=== PATIENT | male | born 1950 | race Caucasian/White ===

== ENCOUNTER 2025-02-08 06:31 | Observation (INO) ==
--- NOTE | 2024-12-29 11:48 | PAT Medication Instructions ---
Medication Instructions Date of Service December 29, 2024 Home Medications cholecalciferol (vitamin D3) 50 mcg (2,000 unit) capsule 50 mcg PO QAM garlic 300 mg capsule 300 mg PO QAM multivitamin 1 tab PO QAM rosuvastatin 10 mg tablet 10 mg PO QPM acetaminophen 500 mg tablet (Acetaminophen Extra Strength) 500 mg PO Q6H PRN Pain docusate sodium 100 mg capsule 100 mg PO HS metoprolol succinate 25 mg capsule sprinkle, ext. release 24 hr 12.5 mg PO QAM aspirin 81 mg tablet,delayed release 81 mg PO QAM ASK your prescriber and surgeon aspirin 81 mg tablet,delayed release 81 mg PO QAM STOP taking 2 weeks before surgery (or as soon as possible if surgery is within 2 weeks) garlic 300 mg capsule 300 mg PO QAM DO NOT take the morning of surgery cholecalciferol (vitamin D3) 50 mcg (2,000 unit) capsule 50 mcg PO QAM multivitamin 1 tab PO QAM Take morning of surgery With a small sip of water, OTHERWISE NOTHING TO EAT OR DRINK AFTER MIDNIGHT: acetaminophen 500 mg tablet (Acetaminophen Extra Strength) 500 mg PO Q6H PRN Pain (if needed) metoprolol succinate 25 mg capsule sprinkle, ext. release 24 hr 12.5 mg PO QAM Take evening before surgery rosuvastatin 10 mg tablet 10 mg PO QPM acetaminophen 500 mg tablet (Acetaminophen Extra Strength) 500 mg PO Q6H PRN Pain (if needed) docusate sodium 100 mg capsule 100 mg PO HS Other Notes If you have any questions please call us at [phone] or [phone] or [phone] or [phone]
--- NOTE | 2025-01-02 10:55 | Anesthesiology Consultation ---
Date of Service January 02, 2025 Assessment & Plan (1) Encounter for pre-operative examination: - awaiting surgeon ordered cardiology clearance, 01/16/25 Dr. Fountain. - Outpatient joint assessment: Patient is currently scheduled for inpatient pathway. If re-evaluated and patient/surgeon requests outpatient pathway, patient is not ideal candidate for outpatient joint program. Chart Review Chart Review: Pending: Refer to Additional Notes / Consult section and Patient seen in Pre Admission Testing Teaching & Discussion Pre-Anesthesia Teaching/Discussion Notes: Instructed NPO after midnight before surgery, except medications with 15 cc of water. Medication instructions provided according to the PAT guidelines. History Surgery Operation Date: 02/08/25 07:00 Proposed Procedures p Left Total Shoulder Arthroplasty - Ivan Rose MD Height/Weight Height: 5 ft 11 in Weight: 113.4 kg Allergies Allergy/AdvReac Type Severity Reaction Status Date / Time house dust Allergy Intermediate Sneezing Verified 12/19/24 11:52 Sulfa (Sulfonamide Allergy Intermediate Rash Verified 12/19/24 11:52 Antibiotics) Penicillins Allergy Unknown Unknown Verified 12/19/24 11:52 Medications Home Medications Medication Instructions Recorded Confirmed Last Taken cholecalciferol (vitamin D3) 50 50 mcg PO QAM 07/21/24 12/19/24 Unknown mcg (2,000 unit) capsule garlic 300 mg capsule 300 mg PO QAM 07/21/24 12/19/24 Unknown multivitamin 1 tab PO QAM 07/21/24 12/19/24 Unknown rosuvastatin 10 mg tablet 10 mg PO QPM 07/21/24 12/19/24 Unknown acetaminophen 500 mg tablet 500 mg PO Q6H PRN Pain 07/28/24 12/19/24 Unknown (Acetaminophen Extra Strength) docusate sodium 100 mg capsule 100 mg PO HS 07/28/24 12/19/24 Unknown metoprolol succinate 25 mg capsule 12.5 mg PO QAM 07/28/24 12/19/24 Unknown sprinkle, ext. release 24 hr aspirin 81 mg tablet,delayed 81 mg PO QAM 12/19/24 12/19/24 Unknown release Past Medical History Medical History (Updated 01/02/25 @ 15:39 by Kenya Lockwood PA-C) Adverse effect of anesthesia during nasal surgery and right knee replacement - woke up in the middle of procedure - as per patient CAD (coronary artery disease) no stents - [facility] Cardiology - Dr Fountain Diverticular disease Emphysema of lung pt unsure History of myocardial infarction of septum Incidental finding for PVC's - [facility] Cardiology - Dr Fountain History of retinal tear Right "Self-healing" as per patient Hx of retinal detachment Left Hx of rheumatic fever as a child Hypertension controlled, stable per pt Ocular migraine hx - 8x lifetime Prediabetes pt denies PVC's (premature ventricular contractions) [facility] Cardiology - Dr Fountain RBBB (right bundle branch block) [facility] Cardiology - Dr Fountain Sleep apnea CPAP-compliant Thyroid nodule Monitoring Tick bite (~1990) hx - unsure if ever have lyme or tested positive - complete antibiotic tx Patient denies h/o stroke, seizures, heart failure, blood clots/DVTs or blood transfusions. Exercise / Class Metabolic Activity II 4-5 Yardwork/Stairs/Walk up hill (denies chest discomfort or shortness of breath with one flight of stairs) Past Family History Family History Mother Glioblastoma Father Prostate carcinoma Brother Prostate carcinoma Past Surgical History Surgical History History of arthroplasty of right knee History of colon resection d/t diverticulitis 12/2019 History of nasal surgery for deviated septum Hx of arthroscopy of left knee Hx of bilateral cataract extraction Hx of colonoscopy Hx of detached retina repair Left Hx of thumb surgery as a child - Left - nail removed (never grew back) as per patient Hx of vasectomy S/P scrotal varicocelectomy Past Anesthesia History No Family Hx of Anesthesia Complications History of PONV No Hx of PONV and No Hx of Motion Sickness Social History Smoking Status: Former smoker Do You Dip or Chew Tobacco: No Smoking End Date: 2008 Hx Alcohol Use: No Hx Substance Use: No substance use type: does not use Review of Systems Patient denies chest pain, shortness of breath, dyspnea on exertion, reflux, fever, chills, cough, wheezing, or palpitations. Physical Exam Vital Signs Vitals BP 136/84 P 91 TEMP 98.6 SP02 96% on RA RESP 18 Physical Patient resting comfortably in chair in no acute distress, alert and oriented, responding appropriately throughout visit Full cervical extension range of motion without pain TMD 3.5 finger breadths Mallampati Score 2 Dentition: several crowns, denies chipped or loose teeth, implants or bridges Lungs: normal respiratory effort. Good air movement, clear throughout to auscultation, no adventitious breath sounds Cardiac: regular rate and rhythm, no murmurs noted Carotid arteries: negative bruit bilat Lab Results Anesthesia Preop Results Results Anesthesia Widget: WBC 7.53 K/ul (4.8-10.8) 01/02/25 Hgb 15.9 g/dl (14.0-18.0) 01/02/25 Hct 48.6 % (42.0-52.0) 01/02/25 Plt 226 K/uL (130-400) 01/02/25 Na 140 mmol/L (136-145) 01/02/25 K 4.4 mmol/L (3.5-5.1) 01/02/25 Cl 105 mmol/L (98-107) 01/02/25 CO2 27 mmol/L (21-32) 01/02/25 BUN 13 mg/dl (6-23) 01/02/25 Creat 0.90 mg/dl (0.6-1.4) 01/02/25 Glucose Level 82 mg/dl (70-99(Fasting)) 01/02/25 PT 11.2 Seconds (9.0-12.0) 01/02/25 PTT 30 Seconds (21-31) 01/02/25 INR 1.0 (0.9-1.1) 01/02/25 TSH 1.423 uIu/ml (0.300-4.500) 01/02/25 HA1c 5.8 % (4.5-5.6) H 01/02/25 Urine Color Yellow 01/02/25 Urine Appearance Clear (Clear) 01/02/25 Urine pH 5.5 (4.5-7.5) 01/02/25 Urine Specific [place] 1.007 (1.000-1.030) 01/02/25 Urine Protein Negative (Negative) 01/02/25 Urine Glucose (UA) Negative (Negative) 01/02/25 Urine Ketones 1+ (Negative) H 01/02/25 Urine Blood 1+ (Negative) H 01/02/25 Urine Nitrite Negative (Negative) 01/02/25 Urine Bilirubin Negative (Negative) 01/02/25 Urine Urobilinogen Negative (Negative) 01/02/25 Urine Leukocyte Esterase 2+ (Negative) H 01/02/25 Urine WBC (Auto) 6-10 /hpf (0-5) H 01/02/25 Urine RBC (Auto) 0-2 /hpf (0-2) 01/02/25 Urine Hyaline Casts (Auto) 0-2 /lpf (0-2) 01/02/25 Urine Epithelial Cells (Auto) 0-2 /hpf (0-2) 01/02/25 Urine Bacteria (Auto) None Seen (None Seen) 01/02/25 Blood Type B Positive 01/02/25 Antibody Screen NEGATIVE 01/02/25 Testing Electrocardiogram Date: 04/15/24 Sinus rhythm with frequent PVCs, rate 90 bpm Possible LA enlargement Left axis deviation RBBB Septal infarct, age undetermined Chest X-Ray Date: 01/02/25 1. Mildly hyperinflated chest noted. 2. No acute cardiopulmonary abnormalities identified. 3. No interval changes compared to prior study. Echocardiogram Date: 05/19/24 EF 55-60% No LVH No regional wall motion abnormalities Grade I diastolic dysfunction Mildly calcified, tricuspid aortic valve without stenosis Trace to mild aortic insufficiency Mild mitral valve regurgitation Other Testing Low dose lung CT 06/03/24 1. Emphysema. 2. No suspicious pulmonary lesion is identified. 3. There is no airspace consolidation or pleural effusion. 4. Advanced coronary artery atherosclerosis. 5. Additional findings as above.
--- NOTE | 2025-02-08 05:26 | History & Physical Bridge Note ---
Date of Service February 08, 2025 History & Physical Bridge Note I have examined the patient, reviewed the History & Physical and in the interval since the performance of the History & Physical I have noted the following changes of clinical significance: consent and site verified.no changes noted
[2025-02-08] MEDS ORDERED: BUPIVACAINE 0.5 % 5 MG/1 ML PF 10ML VIAL ONE (07:48)
[2025-02-08] MEDS ORDERED: MIDAZOLAM HCL 1 MG/ML 2ML VIAL ONE (08:22)
[2025-02-08] MEDS ORDERED: LIDOCAINE 2% 2 ML VIAL/AMP(20MG/ML) INFIL ONE (08:23)
[2025-02-08] MEDS ORDERED: ONDANSETRON INJ 2 MG/ML 2 ML VIAL ONE (08:23)
[2025-02-08] MEDS ORDERED: fentaNYL citrate PF 100 MCG/2 ML VIAL ONE (08:23)
[2025-02-08] MEDS ORDERED: PROPOFOL IV EMULSION 10 MG/ML 20 ML VIAL IV ONE (08:23)
[2025-02-08] MEDS ORDERED: ePHEDrine sulfate 50 MG/ML AMP IV PRN (08:45)
[2025-02-08] MEDS ORDERED: fentaNYL citrate PF 100 MCG/2 ML VIAL IV PRN (08:45)
[2025-02-08] MEDS ORDERED: ATROPINE SULFATE 0.1 MG/ML 10ML SYR IV PRN (08:45)
[2025-02-08] MEDS ORDERED: ONDANSETRON INJ 2 MG/ML 2 ML VIAL IV PRN ×2 (08:45→13:58)
[2025-02-08] MEDS: TRANEXAMIC ACID 1,000 MG **IV Pre-op IV SCH (08:47)
[2025-02-08] MEDS: LR 15ML/HR IV SCH (09:06)
[2025-02-08] MEDS: ceFAZolin 2000MG 2,000 MG/15 ML SYR IV SCH ×2 (09:09→16:58)
[2025-02-08] MEDS: LR 60ML/HR IV SCH (09:20)
[2025-02-08] MEDS ORDERED: PHENYLEPHRINE 100MCG/ML 5ML SYR ONE (10:36)
[2025-02-08] MEDS ORDERED: ePHEDrine sulfate 50 MG/5 ML SYR ONE (10:36)
[2025-02-08] MEDS: TRANEXAMIC ACID 1,000 MG **IV Intra-op IV SCH (11:18)
[2025-02-08] MEDS: THROMBIN FOR SOLN 20000 UNIT KIT ONE (11:20)
--- NOTE | 2025-02-08 11:31 | Post Operative Brief Note ---
Immediate Post Op Note Date of Surgery February 08, 2025 Pre & Post Diagnosis Operation Date: 02/08/25 08:50 Pre-Op Diagnosis: Left Shoulder Osteoarthritis Post-Op Diagnosis: Left Shoulder Osteoarthritis I identified the patient and participated in the time-out.: Yes Procedure Operation Date: 02/08/25 08:50 Actual Procedures p Left Total Shoulder Arthroplasty(Left) - Ivan Rose MD Surgeon Ivan Rose MD Kelp Cutter Elham/Ebonie Estimated Blood Loss 75 Findings Consistent with Post-Op Diagnosis Severe osteoarthritis of the left shoulder with multiple loose bodies Fluids 1000 cc Complications None
--- NOTE | 2025-02-08 11:37 | Operative Report ---
Post Operative Report Pre & Post Diagnosis Operation Date: 02/08/25 08:50 Pre-Op Diagnosis: Left Shoulder Osteoarthritis Post-Op Diagnosis: Left Shoulder Osteoarthritis I identified the patient and participated in the time-out.: Yes Procedure Operation Date: 02/08/25 08:50 Actual Procedures p Left Total Shoulder Arthroplasty(Left) - Ivan Rose MD Surgeon Ivan Rose MD Public Health Officer Elham/Ebonie Estimated Blood Loss 75 Findings Consistent with Post-Op Diagnosis Severe osteoarthritis with multiple loose bodies Fluids 1000 cc Specimens Bone pathology Drains None Complications None Indications Severe pain failed conservative management Description of Procedure After the patient was appropriate notified site verified consent verified antibiotics were confirmed to be given he was carefully placed in the beachchair position shoulder exam revealing forward flexion 110 degrees abduction the same rotation belly to 10 degrees. Once prepped and draped deltopectoral exposure was utilized. Sharp section carried to the skin blunt dissection down to the fascia the deltopectoral interval was then opened. Retractors placed. The vein was preserved. Clavipectoral fascia was then opened and number deep retractors placed. Rotator interval was identified and the subscapularis peeled off the bone. #1 Vicryl was placed in the supraspinatus. The capsule was then released all around the humeral neck going over the osteophytes 2 loose bodies were removed osteophytes resected and the humeral head resected and revised slightly once. Once that was done the next exposure was obtained of the glenoid. The remaining subscap was released off the anterior neck of the glenoid the labrum excised. Using the [employer] global shoulder system a 48 glenoid was appropriately drilled and then impacted in position as a trial it fit well. The permanent was then cemented into position after wound was irrigated with Pulsavac Betadine. After 12 minutes the area was inspected no cement movable was required. Minimal osteophytes were removed off the posterior glenoid before inserting the true implant. The humerus was then flexed and extended and noted to fit through the wound well. It was then appropriately placed into extension adduction and external rotation and allowed proximal humerus to be reamed appropriately at 14 stem fit well. Trial reduction was carried with a 135 body 48 x 18 eccentric head excellent stability was obtained. Once trial was removed the wound was irrigated and then the sutures 4 sutures of #1 FiberWire were then placed through all 4 drill holes once this was done the the humerus was positioned around these and then they were tightened and the humerus stem impacted into position the stem went all the way down so we went directly to the 48 x 18 eccentric head with excellent fixation. Humerus was then reduced verified that it would subluxate 50% posteriorly at first it was little bit incarcerated and soft tissue once we get that cleared out everything moves well. The wound was irrigated 1 final time rotatable closed with #1 Vicryl to the subscapularis and reinforced with the same stitch. The sutures through the bone were then tied through the subscapularis and repaired at nicely down to the tuberosity. With one of the last sutures the eyelet of the needle broke was identified found and removed but was dropped out of the patient somewhere out of the field we could not find it so just to be 100% safe we obtain multiple plain image in the operating room with the fluoroscope and the needle clearly was not in the patient. Wound was then continuously irrigated and then closed with #2 Vicryl and stainless to clips for skin appropriate d ressing applied the patient transferred recovery in satisfactory addition he tolerated the procedure well. Summary of implants size 48 glenoid size 14 stem size 14 x 135 body 48 x 18 eccentric head Global unite total shoulder system by [email or web address]. I attest to the content of the Intraoperative Record and any orders documented therein. Any exceptions are noted below.
--- NOTE | 2025-02-08 11:40 | Discharge Summary ---
Date of Service February 09, 2025 Admission HPI Per Admitting Provider Osteoarthritis left shoulder Principal Diagnosis Hybrid total shoulder replacement left Discharge Data Allergies Allergy/AdvReac Type Severity Reaction Status Date / Time house dust Allergy Intermediate Sneezing Verified 02/08/25 06:52 Sulfa (Sulfonamide Allergy Intermediate Rash Verified 02/08/25 06:52 Antibiotics) Vaccinations None Consultations None Procedures Performed Operation Date: 02/08/25 08:50 Actual Procedures p Left Total Shoulder Arthroplasty(Left) - Ivan Rose MD Ordered Studies 02/08/25 FL shoulder LT min 2V Routine 02/08/25 05:00 US - OR guided needle placemen Routine Hospital Course (1) Status post total replacement of left shoulder: Care plan for total shoulder Total Time Total Time Spent Total Time Spent (In Minutes): 5 minutes Discharge Plan Discharge Items Patient Disposition: Home - Self-Care Reason For Visit: Left Shoulder Osteoarthritis Discharge Diagnosis: Status post left total shoulder placement hybrid Condition on Discharge: Good Activity: Per Instructions section Lifting: Wait until after follow-up appointment Bathing: Keep incision dry Sexual Activity: Wait until after follow-up appointment Exercise/Sports: Wait until after follow-up appointment Driving/Machine Use: No driving until cleared by Dr. Rose Non-emergency contact: Surgeon Call non-emergency contact if: you have any medication questions, your pain is not controlled, your temperature is above 101, your wound has increased redness, your wound has increased drainage and your wound pain has increased Follow-up/Referrals: Laura Rothman, DO [Primary Care Provider] - Diet: Heart Healthy [facility] Attending Provider Instructions: DIET: * Resume previous diet. MEDICATIONS: * Please take your prescriptions as instructed at your pre-op appointment and/or see medication discharge instructions listed above. * If concerns develop, call your physician's office at . SPECIAL CARE INSTRUCTIONS: * Ice/Elevate as instructed. * Keep dressing clean, dry, intact. * Your surgical extremity may be discolored due to prepping agents used on the skin. A bluish-green tint is a normal variant and should not cause alarm. Call your doctor at [phone] if: * Temperature above 101 degrees * Pain not relieved by pain medicine ordered * There is increased drainage or redness from any incision * You have any unanswered questions, problems or concerns. FOLLOW UP VISIT: * If not already scheduled, please call the office at to schedule a follow-up appointment. The following are instructions to follow after "Shoulder Surgery" including, Acromioplasty, Rotator Cuff Repair and Instability Surgery ACTIVITY RECOMMENDATIONS: * Minimize activity after surgery. * No excessive walking, jogging, sports or laboring. * Return to activity is individualized depending on the patient and type of surgery. * Driving is not permitted until at least your first post operative visit. Pl ease ask your doctor when it is safe to resume driving. * Expect increased discomfort with increased activity. Continue to ice the shoulder as needed. SCHOOL/WORK RECOMMENDATIONS: * You may return to sedentary work or school when you are feeling more comfortable. This is usually 3-7 days after surgery. MEDICATIONS: * You will have a prescription for pain medication after surgery. * Use the pain medication for severe pain and an anti-inflammatory for less severe pain. Once the pain medication has run out, try to use the anti-inflammatory medication. If this is not effective, contact the office for assistance. * The pain medication may cause nausea, constipation and drowsiness. You shoul d see how they affect you before driving or similar activity. * The anti-inflammatory medication may cause stomach upset and bleeding. If this occurs let your doctor know immediately . * Take a stool softener like Colace or a laxative like Senokot to prevent constipation. DIET: * Resume previous diet. SPECIAL CARE: ICE: You have the option of gel packs or ice bags. Do not apply ice directly to the skin. Use a thin dressing or joanie shirt between the skin and ice bag. Apply ice for 20-30 minutes and repeat every 2-4 hours. This is especially important for the first 7-10 days after surgery. Once the pain improves, use ice as needed. ELEVATION: * You may be more comfortable sleeping in an upright position. Use the sling to elevate your arm. DRESSING: * Your dressing will be changed at your first therapy appointment 1 day after surgery. Band-aids, tape strips or gauze may be applied. You may then change your dressing daily. * Reapply dressing followed by the sling. * Always wash your hands prior to touching the incision area. * Once the stitches are removed, you may leave the wound open to air or cover with gauze. * Expect some bloody drainage for the first few days after surgery. * Leave the tape strips, if present, in place for 5-7 days. * Band-aids and gauze may be changed daily. * There may be a gauze pad in your armpit area. This can be changed daily or replaced by a dry washcloth. SLING/BRACE: * You will need to use a sling or brace after surgery. The length of time the sling is used is dependent upon the type of surgery performed. * Arthroscopic Acromioplasty requires use of the sling for 2-4 weeks for comfort. * Labral procedures and Rotator Cuff Repairs require use of the sling for a longer period of time. Please check with your doctor prior to discontinuing the sling. BATHING: * You may shower or sponge-bathe immediately after surgery. The post operative shoulder dressing is mostly water-tight. You may shower right over this dressing, but be reasonably careful not to get the gauze or incision wet. * Wash with regular soap and water. * Do not bathe (submerge the incision), soak, swim or use a hot tub until the incision is completely healed over with normal skin and the doctor has given the OK to proceed. * There is no need to apply any ointments, powders or salves to your incision. * Do not apply alcohol or hydrogen peroxide directly to the incision. * Diluted peroxide (50:50 mixture with sterile saline) may be used to clean dried blood from around the incision area. THERAPY: * You will begin therapy 1 day after surgery. * Organized therapy with the therapist is important for the first 2-4 months after surgery depending on the type of procedure. During that time you will attend therapy 1-3 times per week. * You will also need to do daily exercises for range of motion and strength as instructed. * Patients who have a Capsular Shift Procedure will need to abide by temporary range of motion limitations. * Patients having Rotator Cuff Surgery are not allowed to actively lift their arms until 4-6 weeks after surgery. * Please check with your doctor regarding appropriate motion restrictions. FOLLOW UP VISIT: * If not already scheduled, please call the office at to schedule a follow-up appointment for 10 days after surgery and monthly thereafter. Stand-Alone Forms: [employer], Smoking Cessation Medications and DC Order Prescriptions: No Action garlic 300 mg capsule 300 mg PO QAM cholecalciferol (vitamin D3) 50 mcg (2,000 unit) capsule 50 mcg PO QAM multivitamin Tablet 1 tab PO QAM docusate sodium 100 mg capsule 100 mg PO HS metoprolol succinate 25 mg capsule,sprinkle,ER 24hr 12.5 mg PO QAM acetaminophen [Acetaminophen Extra Strength] 500 mg tablet 500 mg PO Q6H PRN (Reason: Pain) rosuvastatin [Crestor] 10 mg tablet 5 mg PO QPM aspirin 81 mg tablet,delayed release (DR/EC) 81 mg PO QAM Admission Data Admit Date/Time: 02/08/25 12:01 Attending Provider: Ivan Rose Admit Provider: Ivan Rose Primary Care Provider: Laura Rothman
--- NOTE | 2025-02-08 11:41 | Orthopedic Progress Note ---
Date of Service February 08, 2025 Orthopedic Progress Note Underwent left total shoulder replacement no major issues. Wound dressing clean dry and intact. Fluoroscopic views in the procedure were utilized to ensure that there was not a retained foreign body. This looked good. At this point in time obtained from the hardcopies in the recovery room. Continue care plan for total shoulder replacement family contacted.
--- NOTE | 2025-02-08 11:55 | Operative Report ---
Post Operative Report Pre & Post Diagnosis Operation Date: 02/08/25 08:50 Pre-Op Diagnosis: Left Shoulder Osteoarthritis Post-Op Diagnosis: Left Shoulder Osteoarthritis I identified the patient and participated in the time-out.: Yes Procedure Operation Date: 02/08/25 08:50 Actual Procedures p Left Total Shoulder Arthroplasty(Left) - Ivan Rose MD Surgeon MAGGI Rose MD Soft Metals Engraver Hand Elham/Ebonie STEELE Estimated Blood Loss 75 Findings Consistent with Post-Op Diagnosis see operative report Specimens see operative report Drains none Complications None Disposition Accompanied Patient To Recovery: Yes Indications This 75 year old male presented to the office with complaints of persisting left shoulder pain. He had tried conservative care measures without improvement. He elected to proceed with surgical intervention after being educated about potential risks and outcomes. Preoperative imaging was obtained. Description of Procedure The patient was administered a regional block and then taken to the operating room where he was given general anesthesia. He was prepped and draped in the usual sterile fashion. Please see Dr. Rose's operative report for specifics of the procedure. I was present for the entire case from initial patient positioning through final wound closure. Assistance was provided in tissue retraction, hemostasis, trial implant placement, final implant placement, and final wound closure. The patient was taken to the recovery room in satisfactory condition. I attest to the content of the Intraoperative Record and any orders documented therein. Any exceptions are noted below.
--- NOTE | 2025-02-08 11:55 | Operative Report ---
Post Operative Report Pre & Post Diagnosis Operation Date: 02/08/25 08:50 Pre-Op Diagnosis: Left Shoulder Osteoarthritis Post-Op Diagnosis: Left Shoulder Osteoarthritis I identified the patient and participated in the time-out.: Yes Procedure Operation Date: 02/08/25 08:50 Actual Procedures p Left Total Shoulder Arthroplasty(Left) - Ivan Rose MD Surgeon Ivan Rose MD [employer] [place]/E[place]ie Estimated Blood Loss 75 Findings Consistent with Post-Op Diagnosis Specimens Left humeral head bone pathology Description of Procedure Patient was brought to the operative suite where he underwent anesthesia. Left upper extremity was prepped and draped in the usual sterile fashion. Surgical timeout was performed. The patient underwent a left total shoulder arthroplasty. Please see Dr. Rose's operative report for full details. I was present and assisted with patient positioning, limb positioning, surgical approach, soft tissue retraction and hemostasis, hardware implantation, wound closure, postoperative dressing placement. The patient was awakened and taken to the recovery room in stable condition. I attest to the content of the Intraoperative Record and any orders documented therein. Any exceptions are noted below.
--- NOTE | 2025-02-08 12:02 | Fluoroscopy Report ---
FL shoulder LT min 2V CLINICAL HISTORY: LEFT SHOULDER MISSING NEEDLE COMPARISON STUDY: 01/13/2025 FLUOROSCOPY TIME: 6 seconds FLUOROSCOPY IMAGES: 3 EXPOSURE DOSE: 0.5 mGy FINDINGS: Fluoroscopy was provided for left shoulder prosthesis. Otherwise no radiopaque foreign body seen on the submitted images. IMPRESSION: Intraoperative fluoroscopy. ACT 112: Negative or not required by law. Electronically signed by: Willian Shannon M.D. 02/08/2025 12:01 PM
--- NOTE | 2025-02-08 12:07 | XRay Report ---
XR shoulder LT min 2V routine CLINICAL HISTORY: S/P L TSA COMPARISON: None pertinent FINDINGS: 2 views of the left shoulder demonstrate a proximal humeral prosthesis has been inserted w ith satisfactory positioning and alignment. Postsurgical changes are identified in soft tissues. Ther e is discoid atelectasis present in the left lung base. IMPRESSION: Satisfactory postop appearance status post arthroplasty. Discoid atelectasis is noted at the left lung base. ACT 112: Negative or not required by law. Electronically signed by: Mari Wong M.D. 02/08/2025 12:06 PM
--- NOTE | 2025-02-08 12:19 | Orthopedic Progress Note ---
Date of Service February 08, 2025 Orthopedic Progress Note Doing well at this point in time denies chest pain shortness of breath fever chills nausea vomiting headache. Vital signs are stable afebrile. Neurovascular check reveals intact finger extension flexion wrist flexion extension decreased sensation about the shoulder consistent with his block. He has decreased sensation in the hand as well consistent with his block. Postop x-rays look excellent. No sign of any issues. Assessment doing well status post total shoulder replacement hybrid cemented glenoid press-fit humerus. Continue care pathway discharge home tomorrow.
--- NOTE | 2025-02-08 13:52 | Anesthesiology Progress Note ---
Date of Service February 08, 2025 Anesthesia Post Procedure Vital Signs Vital Signs: Temp Pulse Pulse Resp BP Pulse Ox O2 Del Method 02/08/25 13:30 36.4 C L 88 16 116/72 96 Room Air 02/08/25 13:15 89 18 116/66 98 Room Air 02/08/25 13:00 88 18 124/80 97 Room Air 02/08/25 12:45 85 16 110/67 94 Room Air 02/08/25 12:30 36.4 C L 90 20 131/79 93 Room Air 02/08/25 12:20 90 18 135/84 93 Room Air 02/08/25 12:10 86 16 133/86 98 Oxymask 02/08/25 12:00 88 16 128/85 97 Oxymask 02/08/25 11:50 36.0 C L 90 20 137/88 100 Oxymask 02/08/25 06:53 36.3 C L 81 20 147/86 H 98 Room Air O2 Flow Rate 02/08/25 13:30 02/08/25 13:15 02/08/25 13:00 02/08/25 12:45 02/08/25 12:30 02/08/25 12:20 02/08/25 12:10 2 02/08/25 12:00 4 02/08/25 11:50 6 02/08/25 06:53 Transfer of Care Handoff Completed per policy Notes Mental Status: alert / awake / arousable and participated in evaluation Patient Amnestic to Procedure: Yes Nausea / Vomiting: adequately controlled Pain: adequately controlled Airway Patency, RR, SpO2: stable & adequate BP & HR: stable & adequate Hydration State: stable & adequate Anesthetic Complications: no major complications apparent and Pt Satisfied with anesthetic care
[2025-02-08] MEDS ORDERED: bisacodyL 10 MG SUPP PR PRN (13:58)
[2025-02-08] MEDS ORDERED: NALOXONE HCL 0.4 MG/1 ML VIAL/CARP IV PRN (13:58)
[2025-02-08] MEDS ORDERED: oxyCODONE HCL IR 5 MG TAB (IMMEDIATE RELEASE) PO PRN (13:58)
[2025-02-08] MEDS ORDERED: METOCLOPRAMIDE HCL INJ 5 MG/ML 2 ML VIAL IV PRN (13:58)
[2025-02-08] MEDS ORDERED: diphenhydrAMINE 50 MG/ML VIAL IV PRN (13:58)
[2025-02-08] MEDS ORDERED: MAGNESIUM HYDROXIDE SUSP 30 ML UDC PO PRN (13:58)
[2025-02-08] MEDS ORDERED: HYDROmorphone INJ 0.5 MG/0.5 ML SYR IV PRN (13:58)
[2025-02-08] MEDS ORDERED: ALUMINUM/MAGNESIUM SUSP 30 ML UDC PO PRN (13:58)
[2025-02-08] MEDS: BUPIVACAINE LIPOSOME 1.3% 133 MG/10 ML VIAL ONE (14:30)
[2025-02-08] MEDS: ACETAMINOPHEN 500 MG TAB PO SCH (15:05)
[2025-02-08] MEDS: KETOROLAC TROMETHAMINE 15 MG/ML VIAL IV SCH (15:06)
[2025-02-08] MEDS: FERROUS GLUCONATE 324 MG TAB PO SCH (16:57)
[2025-02-08] MEDS: ASCORBIC ACID 500 MG TAB PO SCH (16:58)
[2025-02-08] MEDS: ROSUVASTATIN CALCIUM 5 MG TAB PO SCH (20:48)
[2025-02-08] MEDS: DOCUSATE SODIUM 100 MG CAP PO SCH (20:48)
[2025-02-08] MEDS: SENNA 8.6 MG TAB PO SCH (20:48)
[2025-02-08] MEDS ORDERED: DOCUSATE SODIUM 100 MG CAP PO SCH (21:00)
[2025-02-08 23:17] VITALS: O2SAT 94
[2025-02-09 03:40] VITALS: PULSE 76; RESP 18
[2025-02-09 07:00] VITALS: BP 127/74; TEMP 97.8
--- NOTE | 2025-02-09 07:02 | Orthopedic Progress Note ---
Date of Service February 09, 2025 Assessment & Plan Admission and Anticipated Discharge Date Admission Date: February 08, 2025 Orthopedic Progress Note Postop day #1 status post left total shoulder replacement. Block is still in effect. Has a finger bowel movement but no real sensation in the arm. The wound dressing clean dry and intact. Pain is well-managed that he has no discomfort whatsoever. He is up ambulatory. Eating drinking. Denies chest pain shortness of breath fever chills nausea vomiting headache. Vital signs are stable he is afebrile. Assessment doing well discharged to home today. Will have outpatient visit for PT where dressing change will occur over at [facility]. Advised not to get the wound wet. He states he understands.
[2025-02-09 08:10] LABS: Basophils # (auto) 0.02 K/uL (0.00-0.20); Basophils % (auto) 0.2 %; Eosinophils # (auto) 0.03 K/uL (0.00-0.50); Eosinophils % (auto) 0.3 %; Hematocrit (blood only) 42.2 % (42.0-52.0); Hemoglobin 13.9 g/dl (14.0-18.0); Immature Granulocytes # (auto) 0.05 K/uL (0.01-0.20); Immature Granulocytes % (auto) 0.5 %; Lymphocytes # (auto) 1.15 K/uL (1.20-3.40); Lymphocytes % (auto) 10.6 %; Mean Corpuscular Hemoglobin 30.5 pg (25.0-34.0); Mean Corpuscular Hgb Conc 32.9 g/dL (32.0-36.0); Mean Corpuscular Volume 92.7 fL (80.0-100.0); Mean Platelet Volume 10.8 fL (9.4-12.4); Monocytes # (auto) 1.17 K/uL (0.11-0.59); Monocytes % (auto) 10.8 %; Neutrophils % (auto) 77.6 %; Platelet Count 192 K/uL (130-400); RDW Coefficient of Variation 13.7 % (11.5-14.5); RDW Standard Deviation 46.8 fL (36.4-46.3); Red Blood Count 4.55 M/uL (4.70-6.10); White Blood Count 10.82 K/ul (4.8-10.8)
[2025-02-09] MEDS: TAMSULOSIN HCL 0.4 MG CAP PO PRN (08:13)
[2025-02-09] MEDS: MULTIVITAMIN TAB PO SCH (08:13)
[2025-02-09] MEDS: METOPROLOL SUCC 25MG EXT REL TAB PO SCH (08:14)
[2025-02-09] MEDS: ASPIRIN 81 MG ECTAB PO SCH (08:15)
[2025-02-09] MEDS: dexAMETHasone 10 MG in SYRINGE 0 ML IV SCH (08:16)
[2025-02-09 08:30] LABS: Calcium 8.5 mg/dl (8.6-10.3); Potassium 3.8 mmol/L (3.5-5.1)
[2025-02-09 08:36] LABS: BUN Creatinine Ratio 18.2 (10-20); Creatinine Clr Calc Pharmacy 90.1 ml/min
--- NOTE | 2025-02-09 09:42 | Orthopedic Progress Note ---
Date of Service February 09, 2025 Assessment & Plan (1) Status post total replacement of left shoulder: Plan: The patient was educated regarding today's findings. He will be discharged this morning to attend physical therapy at the office at 1030. Dressing change will be performed there. Prescription for Percocet has been sent to his pharmacy. Written discharge instructions were provided. Call the office with any other concerns. Continue wearing the sling at all times. Keep the wound dry until his tasha have been removed. He understands he is to to cover the incision when showering. Resume his normal diet. Admission and Anticipated Discharge Date Admission Date: February 08, 2025 Subjective This 75-year-old male was seen today in his room. His is present. He is 1 day status post left total shoulder arthroplasty. He states he is doing well. He denies any chest pain, shortness of breath, nausea, vomiting, or abdominal pain. He states he slept reasonably well after being in the hospital. He states that his sensation has mostly returned. He still has a numb spot on his thumb. He is having minimal pain at this point. No other complaints. Review of Systems Review of Systems: Unchanged from yesterday. Physical Exam Physical Exam: General: Well-developed, well-nourished, elderly male, in no acute distress. Laying in bed. Alert and oriented. Skin: Warm and dry with good turgor. No rashes. No ecchymosis. Postsurgical dressing is in place on the left shoulder. There is no bleeding through the bandages. These were not removed. Musculoskeletal: The patient has intact motor function of his digits and wrist of the left arm. Elbow and shoulder motion were not attempted at this time. His sling is in place. Neurologic: Gross sensation is intact across the left arm extending to the hand, by soft touch. There is an absence of sensation on the pad of his thumb. He also has some blunted sensation on the pad of his index finger. He is able to oppose, pinch hospice manager, and cross his fingers. Radial, median, and ulnar nerve functions are intact for both motor and sensory. Peripheral pulses are 2+. Results & Data Vital Signs (Past 12 Hours) Vital Signs Temp Pulse Resp BP Pulse Ox O2 Del Method 02/09/25 06:59 36.6 C 76 18 127/74 94 Room Air 02/09/25 03:39 76 18 130/75 94 Room Air 02/08/25 23:16 36.9 C 91 H 20 112/62 94 Room Air Laboratory Results CBC obtained this morning shows a white count of 10.82. H&H of 13.9 and 42.2. Platelets 192,000. Electrolytes this morning are unremarkable. BUN and creatinine are normal. Glucose 107. Calcium essentially normal at 8.5.
== END 2025-02-09 10:01 | disposition home or self-care (01) ==
LOC: ASU 06:31 → 3W 06:31